=== PATIENT | female | born 1990 | race Caucasian/White ===

== ENCOUNTER 2016-11-20 11:37 | Emergency (ER) | payer SELFPAY ==
[~2016-11-20] VITALS: Ht 162.6 cm; Wt 127.0 kg
[2016-11-20] MEDS ORDERED: IV NORMAL SALINE 1,000ML 1,000 ML IV SCH (11:46)
[2016-11-20] MEDS: FENTANYL PF 100 MCG/2 ML VIAL. IV PRN ×3 (12:05→14:20)
[2016-11-20] MEDS ORDERED: KETOROLAC 30 MG/ML VIAL. IV ONE (12:20)
[2016-11-20] MEDS ORDERED: ONDANSETRON PF 4 MG/2 ML VIAL. IV ONE (12:20)
[2016-11-20 12:26] LABS: BASO % 0 % (0-3); EOS % 0 % (0-3); HEMATOCRIT 41.8 % (36.0-47.0); HEMOGLOBIN 14.1 g/dL (12.0-15.5); LYMPH # 1.3 x10^3/uL (1.0-4.8); LYMPH % 6 % (24-48); MEAN CORPUSCULAR HEMOGLOBIN 31 pg (25-35); MEAN CORPUSCULAR HGB CONC 34 g/dL (31-37); MEAN CORPUSCULAR VOLUME 91 fL (79-100); MONO # 0.8 x10^3/uL (0.0-1.1); MONO % 4 % (0-9); NEUT % 90 % (31-73); PLATELET COUNT 212 x10^3/uL (140-400); RED BLOOD COUNT 4.62 x10^6/uL (3.50-5.40); RED CELL DISTRIBUTION WIDTH 13.7 % (11.5-14.5); WHITE BLOOD COUNT 22.3 x10^3/uL (4.0-11.0)
[2016-11-20] MEDS ORDERED: IOHEXOL 300 MG/ML 75 ML VIAL. IV ONE (12:30)
[2016-11-20 12:37] LABS: ALBUMIN/GLOBULIN RATIO 1.1 (1.0-1.7); CALCIUM 9.1 mg/dL (8.5-10.1); CREATININE 0.9 mg/dL (0.6-1.0); GFR 76.3; POTASSIUM 3.5 mmol/L (3.5-5.1); TOTAL BILIRUBIN 0.7 mg/dL (0.2-1.0); TOTAL PROTEIN 7.6 g/dL (6.4-8.2)
[2016-11-20 13:04] LABS: % BANDS 6 % (0-9); % EOS 0 % (0-5); % LYMPHS 6 % (24-48); % MONOS 1 % (0-10); % SEGS 87 % (35-66)
[2016-11-20 13:05] LABS: % BASOS 0 % (0-3); PLT ESTIMATE ADEQUATE (ADEQUATE); TOXIC GRANULATION SLIGHT; TOXIC VACUOLATION MOD
[2016-11-20 13:23] LABS: AMPHETAMINE/METHAMPHETAMINE NEG (NEG); BARBITURATES NEG (NEG); BENZODIAZEPINES NEG (NEG); CANNABINOIDS POS (NEG); COCAINE NEG (NEG); METHADONE NEG (NEG); OPIATES NEG (NEG); PHENCYCLIDINE NEG (NEG)
--- NOTE | 2016-11-20 13:30 | RAD ---
Indication: Abdominal pain for one day. Technique: Axial images and coronal and sagittal reformatted images are provided. 75 mL of intravenous Omnipaque 300 was administered. No comparison is available. One or more of the following individualized dose reduction techniques were utilized for this examination: 1. Automated exposure control 2. Adjustment of the mA and/or kV according to patient size 3. Use of iterative reconstruction technique Findings: The lung bases are clear. There is no pleural effusion. The heart is not enlarged. There is mild fatty infiltration of the liver. Gallbladder is unremarkable. Spleen is not enlarged. Pancreas and adrenals are unremarkable. Kidneys are symmetrically perfused. 2 mm nonobstructing right renal calculus is noted. Aorta is normal caliber. Lack of oral contrast limits evaluation of bowel. There is no small bowel obstruction. There is no definite mural thickening allowing for the degree of small bowel distention of each loop. There is fluid throughout the colon. There is no wall thickening in the colon. IUD is noted. There is no adnexal mass. There is no free pelvic fluid. Impression: 1. Fluid throughout the colon compatible with diarrhea. 2. Mild fatty infiltration of the liver. 3. Nonobstructing right renal calculus.
[2016-11-20 13:33] LABS: BILIRUBIN,URINE NEG (NEG); CLARITY,URINE CLOUDY; COLOR,URINE YELLOW; GLUCOSE,URINE NEG (NEG); NITRITE,URINE NEG (NEG); RBC,URINE 0 /HPF (0-2); UROBILINOGEN,URINE 0.2 mg/dL (0.2 mg/dL)
[2016-11-20 13:34] LABS: AMORPHOUS SEDIMENT,UR PRESENT /HPF; BACTERIA,URINE MANY /HPF (0-FEW); SQUAMOUS EPITHELIAL CELL,UR MOD /LPF
--- NOTE | 2016-11-20 13:39 | PHYS DOC ---
General Chief Complaint: ABDOMINAL PAIN Stated Complaint: ABDOM PAINS Time Seen by MD: 11:42 Source: patient Exam Limitations: no limitations Problems: History of Present Illness Initial Comments Pt is 26/F to ED with mom for abdominal pain. Pt arrives crying and moaning holding her low abdomen. She complains of "15/10 " low abd pain sharp/stabby worse with certain movements relieved by nothing. No vomitting/diarrhea, last BM yesterday last PO intake yesterday. No travel/ bad food exposure, no fever/chills/myalgias. Timing/Duration: 24 hours Severity: severe Modifying Factors: worse with movement Associated Symptoms: malaise, other Allergies: Coded Allergies: No Known Drug Allergies (Unverified , 11/20/16) Past Medical History Medical History: no pertinent history Surgical History: noncontributory LMP (Females 10-50): last week Social History Smoker: non-smoker Alcohol: none Drugs: none Review of Systems Constitutional: denies chills, denies diaphoresis, denies fever, malaise Respiratory: denies cough, denies shortness of breath Cardiovascular: denies chest pain, denies palpitations Gastrointestinal: see HPI Genitourinary: denies dysuria, denies frequency, denies hematuria Musculoskeletal: denies back pain, denies joint swelling, denies neck pain Psychiatric/Neurological: denies headache, denies numbness, denies paresthesia Hematologic/Lymphatic: denies easy bleeding, denies easy bruising Physical Exam General Appearance: severe distress, obese Eyes: bilateral eye EOMI, bilateral eye PERRL, bilateral eye normal inspection Ear, Nose, Throat: hearing grossly normal, normal ENT inspection, normal pharynx Neck: non-tender, supple Respiratory: normal breath sounds, no respiratory distress Cardiovascular: normal peripheral pulses, regular rate, rhythm Gastrointestinal: soft (ND, suprapubic TTP no r/g/mass neg mcburney/lawrence) Rectal: deferred Back: no CVA tenderness, no vertebral tenderness Extremities: non-tender, normal inspection 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 PHYSICIAN: JESSICA CHRISTY DO REASON: severe low abd pain PROCEDURE: ABD PELV W/ IV CONTRAST ONLY Indication: Abdominal pain for one day. Technique: Axial images and coronal and sagittal reformatted images are provided. 75 mL of intravenous Omnipaque 300 was administered. No comparison is available. One or more of the following individualized dose reduction techniques were utilized for this examination: 1. Automated exposure control 2. Adjustment of the mA and/or kV according to patient size 3. Use of iterative reconstruction technique Findings: The lung bases are clear. There is no pleural effusion. The heart is not enlarged. There is mild fatty infiltration of the liver. Gallbladder is unremarkable. Spleen is not enlarged. Pancreas and adrenals are unremarkable. Kidneys are symmetrically perfused. 2 mm nonobstructing right renal calculus is noted. Aorta is normal caliber. Lack of oral contrast limits evaluation of bowel. There is no small bowel obstruction. There is no definite mural thickening allowing for the degree of small bowel distention of each loop. There is fluid throughout the colon. There is no wall thickening in the colon. IUD is noted. There is no adnexal mass. There is no free pelvic fluid. Impression: 1. Fluid throughout the colon compatible with diarrhea. 2. Mild fatty infiltration of the liver. 3. Nonobstructing right renal calculus. DICTATED AND SIGNED BY: MAIDA TELLEZ MD DATE: 11/20/16 0705 CC: JESSICA CHRISTY DO ~ WBC 22, b6, UA +SE and products of infection Pt feeling better going over results. I discussed treatment plan pt expressed agreement/understanding. Departure Time of Disposition: 14:01 Disposition: 01 HOME, SELF-CARE Diagnosis: gastroenteritis, UTI Condition: STABLE Patient Instructions: Urinary Tract Infection, [id number], Viral Gastroenteritis, [id number] Additional Instructions: Rest, no strenuous activity. Aggressive hydration with gatorade, water. Clear liquids, advance to bland diet as tolerated. Rx: cipro, flagyl, zofran odt, norco 5mg #15 Follow up with your doctor in 3-5 days for recheck and urine culture results. Return to ED with new or changing symptoms. JESSICA CHRISTY DO Nov 20, 2016 13:39
[2016-11-20 14:21] VITALS: BP 129/64
== END 2016-11-20 14:20 | disposition home or self-care (01) ==
LOC: ER 11:37
DX: K52.9 Noninfective gastroenteritis and colitis, unspecified (principal); N39.0 Urinary tract infection, site not specified
CPT/HCPCS: 36415; 74177; 80053; 81001; 82550; 83690; 85007; 85027; 87086; 96361; 96374; 96375; 96376; 99285; G0481; J1885; J2405; J3010; Q9967; J7030

== ENCOUNTER 2016-11-26 10:33 | Emergency (ER) | payer BC ==
[~2016-11-26] VITALS: Ht 162.6 cm; Wt 130.6 kg
[2016-11-26 11:51] LABS: BILIRUBIN,URINE NEG (NEG); CLARITY,URINE CLOUDY; COLOR,URINE AMBER; GLUCOSE,URINE NEG (NEG); NITRITE,URINE NEG (NEG); UROBILINOGEN,URINE 1 mg/dL (0.2 mg/dL)
[2016-11-26 11:52] LABS: BACTERIA,URINE MOD /HPF (0-FEW); RBC,URINE >40 /HPF (0-2); SQUAMOUS EPITHELIAL CELL,UR MANY /LPF; WBC,URINE >40 /HPF (0-4)
--- NOTE | 2016-11-26 11:57 | RAD ---
Indication abdominal pain for one week. Left-sided. Supine films of the abdomen were obtained. Note is made of a CT examination of the abdomen and pelvis 6 days ago. The lung bases are clear. The abdominal gas pattern is normal. No organomegaly or abnormal calculi are seen. IUD is noted. IMPRESSION: No significant finding on plain films of the abdomen
[2016-11-26] MEDS ORDERED: MAGNESIUM CITRATE 296 ML SOLUTION. PO ONE (12:00)
[2016-11-26] MEDS ORDERED: SULF1TAB23 PO (12:00)
[2016-11-26] MEDS ORDERED: MAGNESIUM CITRATE 296 ML SOLUTION. ONE (12:13)
--- NOTE | 2016-11-26 12:14 | ED.ADGEN ---
Past History Past Medical History: No Pertinent History Past Surgical History: No Surgical History Alcohol Use: None Drug Use: None Adult General HPI HPI Patient is a 26-year-old female presents emergency department for increasing dysuria and lower abdominal pain. Patient was seen 1 week ago for similar symptoms diagnosed with a gastroenteritis. She reports that she took the pain medication that was given to at that time and she is now constipated. She feels like her urinary symptoms have worsened. Although she does deny fevers, chills, nausea, vomiting. She has also had a menstrual cycle since her last visit. She denies any other vaginal bleeding or discharge. Denies any risk for sexually transmitted infections. Denies any sexual contact for greater than 6 months. She does have an IUD. Review of Systems Review of Systems Constitutional: Denies fever or chills [] Eyes: Denies change in visual acuity, redness, or eye pain [] HENT: Denies nasal congestion or sore throat [] Respiratory: Denies cough or shortness of breath [] Cardiovascular: No additional information not addressed in HPI [] GI: Denies abdominal pain, nausea, vomiting, bloody stools or diarrhea [] : Denies dysuria or hematuria [] Musculoskeletal: Denies back pain or joint pain [] Integument: Denies rash or skin lesions [] Neurologic: Denies headache, focal weakness or sensory changes [] Endocrine: Denies polyuria or polydipsia [] Current Medications Current Medications Current Medications Medications (Trade) Dose Ordered Sig/Lisandro Start Time Stop Time Status Last Admin Dose Admin Magnesium Citrate (Citroma) 296 ml 1X ONCE 11/26/16 12:00 11/26/16 12:01 UNV Allergies Allergies Allergies Coded Allergies Type Severity Reaction Last Updated Verified No Known Drug Allergies 11/20/16 No Physical Exam Physical Exam Constitutional: Well developed, well nourished, no acute distress, non-toxic appearance. [] HENT: Normocephalic, atraumatic, bilateral external ears normal, oropharynx moist, no oral exudates, nose normal. [] Eyes: PERRLA, EOMI, conjunctiva normal, no discharge. [] Neck: Normal range of motion, no tenderness, supple, no stridor. [] Cardiovascular:Heart rate regular rhythm, no murmur [] Lungs & Thorax: Bilateral breath sounds clear to auscultation [] Abdomen: Bowel sounds normal, soft, no tenderness, no masses, no pulsatile masses. [] Skin: Warm, dry, no erythema, no rash. [] Back: No tenderness, no CVA tenderness. [] Extremities: No tenderness, no cyanosis, no clubbing, ROM intact, no edema. [] Neurologic: Alert and oriented X 3, normal motor function, normal sensory function, no focal deficits noted. [] Psychologic: Affect normal, judgement normal, mood normal. [] Current Patient Data Lab Results Laboratory Tests Test 11/26/16 10:45 Urine Collection Type Unknown Urine Color Jessica Urine Clarity Cloudy Urine pH 6.0 Urine Specific [place] >=1.030 Urine Protein >100 mg/dl (NEG-TRACE) Urine Glucose (UA) Negmg/dL (NEG) Urine Ketones (Stick) 15mg/dL (NEG) Urine Blood Large (NEG) Urine Nitrite Neg (NEG) Urine Bilirubin Neg (NEG) Urine Urobilinogen Dipstick 1mg/dL (0.2 mg/dL) Urine Leukocyte Esterase Large (NEG) Urine RBC >40/HPF (0-2) Urine WBC >40/HPF (0-4) Urine Squamous Epithelial Cells Many/LPF Urine Bacteria Mod/HPF (0-FEW) Urine Mucus Mod/LPF EKG EKG [] Radiology/Procedures Radiology/Procedures Indication abdominal pain for one week. Left-sided. Supine films of the abdomen were obtained. Note is made of a CT examination of the abdomen and pelvis 6 days ago. The lung bases are clear. The abdominal gas pattern is normal. No organomegaly or abnormal calculi are seen. IUD is noted. IMPRESSION: No significant finding on plain films of the abdomen DICTATED AND SIGNED BY: VINCE ALLEN MD DATE: 11/26/16 8815 CC: ROSENDA SHULTZ MD; PCP,NO ~ [] Course & Med Decision Making Course & Med Decision Making Pertinent Labs and Imaging studies reviewed. (See chart for details) I switched the patient's antibiotics to Bactrim. She was given a bottle of mag citrate for constipation. She was given further supportive care instructions and follow-up directions. [] Final Impression Final Impression Constipation UTI[] Problems: Dragon Disclaimer Dragon Disclaimer This electronic medical record was generated, in whole or in part, using a voice recognition dictation system. ROSENDA SHULTZ MD Nov 26, 2016 12:14
== END 2016-11-26 12:15 | disposition home or self-care (01) ==
LOC: ER 10:33
DX: N39.0 Urinary tract infection, site not specified (principal); K59.00 Constipation, unspecified
CPT/HCPCS: 74000; 81001; 87086; 99285